=== PATIENT | female | born 1960 | race Caucasian/White ===

== ENCOUNTER 2018-04-19 07:00 | Day surgery (SDC) | payer OTHER ==
[~2018-04-19 07:00] MED LIST: ATORVASTATIN CA40 MG PO; COZAAR100 MG PO; LYRICA50 MG PO; NORVASC5 MG PO; OSTERA TABLET1 EACH PO; [UNRECOGNIZED DRUG - CODE] PO
== END 2018-04-19 15:00 | disposition home or self-care (01) ==
LOC: CIR.AMB 07:00
DX: M51.16 Intervertebral disc disorders with radiculopathy, lumbar region (principal)

== ENCOUNTER 2020-09-07 10:00 | Outpatient (CLI) | payer OTHER | END 2020-09-07 10:15 | disposition HB | LOC: MAMO-SONO 10:00 | DX: Z12.31 Encounter for screening mammogram for malignant neoplasm of breast (principal); J45.998 Other asthma; R92.1 Mammographic calcification found on diagnostic imaging of breast ==

== ENCOUNTER → 2020-09-07 12:25 | Outpatient (CLI) | payer OTHER | END | disposition home or self-care (01) | LOC: LAB 12:25 | PROVIDERS: ATTEND Specialist | DX: D64.89 Other specified anemias (principal); E11.65 Type 2 diabetes mellitus with hyperglycemia; E03.8 Other specified hypothyroidism; D51.0 Vitamin B12 deficiency anemia due to intrinsic factor deficiency; N39.0 Urinary tract infection, site not specified; Z12.4 Encounter for screening for malignant neoplasm of cervix; E55.9 Vitamin D deficiency, unspecified ==

== ENCOUNTER 2022-03-23 10:31 | Outpatient (CLI) | payer OTHER | END 2022-03-23 10:36 | disposition home or self-care (01) | LOC: MAMO-SONO 10:31 | PROVIDERS: ATTEND Specialist | DX: Z12.31 Encounter for screening mammogram for malignant neoplasm of breast (principal); Z12.39 Encounter for other screening for malignant neoplasm of breast; N60.39 Fibrosclerosis of unspecified breast ==